=== PATIENT | male | born 1980 | race Caucasian/White ===

== ENCOUNTER 2024-01-26 12:59 | Emergency (ER) | payer MEDICAID ==
[~2024-01-26] VITALS: Ht 162.6 cm; Wt 66.0 kg
[2024-01-26 13:03] VITALS: O2SAT 98
[2024-01-26 13:57] LABS: BASOPHILS % 0.7 % (0.0-2.0); EOSINOPHILS % 2.4 % (0.0-5.0); HEMATOCRIT. 42.8 % (42.0-52.0); HEMOGLOBIN. 14.4 g/dL (14.0-18.0); LYMPHOCYTES % 33.2 % (20.0-50.0); MEAN CORPUSCULAR HEMOGLOBIN 31.1 pg (28.0-32.0); MEAN CORPUSCULAR HGB CONC 33.6 g/dL (31.0-37.0); MEAN CORPUSCULAR VOLUME 92.6 fL (80.0-94.0); MEAN PLATELET VOLUME 7.2 fl (7.4-10.4); MONOCYTES % 10.5 % (2.0-8.0); NEUTROPHILS % 53.2 % (40.0-76.0); PLATELET 210 x1000/uL (130-400); RED BLOOD CELL COUNT 4.62 mill/uL (4.7-6.1); RED CELL DISTRIBUTION WIDTH 14.2 % (11.6-14.6)
[2024-01-26] MEDS ORDERED: ACETAMINOPHEN WITH CODEINE 300/30MG TABLET PO ONE (14:00)
[2024-01-26 14:10] LABS: CARBON DIOXIDE 28 mEq/L (21-32); CHLORIDE 108 mEq/L (98-107); POTASSIUM 4.1 mEq/L (3.5-5.1); SODIUM 142 mEq/L (136-145)
[2024-01-26 14:11] LABS: CALCIUM 8.8 mg/dL (8.7-10.4)
[2024-01-26 14:15] LABS: GLUCOSE 72 mg/dL (70-105)
[2024-01-26 14:16] LABS: UREA NITROGEN BLOOD 9 mg/dL (9-23)
[2024-01-26 14:17] LABS: ALANINE AMINOTRANSFERASE 35 IU/L (10-49); ASPARTATE AMINOTRANSFERASE 28 IU/L (<34)
[2024-01-26 14:18] LABS: ALBUMIN 4.2 g/dL (3.2-4.8); BILIRUBIN DIRECT 0.3 mg/dL (<=3.0); PROTEIN TOTAL 6.3 g/dL (6.0-8.3)
[2024-01-26] MEDS: ACETAMINOPHEN WITH CODEINE 300/30MG TABLET PO NR (17:20)
[2024-01-26 17:24] VITALS: BP 108/62; PULSE 43; RESP 16; TEMP 36.44736; O2SAT 100
== END 2024-01-26 17:30 | disposition home or self-care (01) ==
LOC: ER 13:26
DX: R10.2 Pelvic and perineal pain (principal); W05.1XXA Fall from non-moving nonmotorized scooter, initial encounter; Y93.89 Activity, other specified; Y92.89 Other specified places as the place of occurrence of the external cause; Y99.8 Other external cause status
CPT/HCPCS: 36415; 72170; 80048; 80076; 85025; 86850; 86900; 99284

== ENCOUNTER 2024-10-16 21:28 | Emergency (ER) | payer MEDICAID ==
[~2024-10-16] VITALS: Ht 162.6 cm; Wt 67.8 kg
[2024-10-16 21:39] VITALS: TEMP 36.8; O2SAT 99
[2024-10-16 22:34] LABS: CLARITY URINE TURBID (CLEAR); COLOR URINE DARK YELLOW (YELLOW); GLUCOSE URINE NEGATIVE (NEGATIVE); KETONES URINE TRACE (NEGATIVE); LEUKOCYTE ESTERASE URINE NEGATIVE (NEGATIVE); NITRITE URINE NEGATIVE (NEGATIVE); OCCULT BLOOD URINE NEGATIVE (NEGATIVE); PROTEIN URINE TRACE (NEGATIVE); SPECIFIC GRAVITY URINE 1.034 (1.005-1.030)
[2024-10-16 22:43] LABS: AMORPHOUS SEDIMENT URINE 3+ /lpf; BACTERIA URINE TRACE; CALCIUM OXALATE CRYSTALS URINE 1+ /lpf; RBC URINE NONE SEEN /hpf (0-2); SQUAMOUS EPITHELIAL CELL URINE FEW /lpf (RARE/1+); WBC URINE 0-2 /hpf (0-2)
[2024-10-16] MEDS ORDERED: DOXY100C5 MT (23:44)
[2024-10-17] MEDS: CEFTRIAXONE SODIUM 500MG VIAL IM ONE (00:21)
[2024-10-17 00:29] VITALS: BP 118/63; PULSE 60; RESP 16; O2SAT 100
== END 2024-10-17 00:30 | disposition home or self-care (01) ==
LOC: ER 21:28
DX: R30.9 Painful micturition, unspecified (principal); Z79.899 Other long term (current) drug therapy
CPT/HCPCS: 99283; 86592; 81003; 36415; 96372; J0696